=== PATIENT | male | born 1940 | race African-American/Black ===

== ENCOUNTER 2023-09-26 16:57 | Inpatient (IN) | payer MEDICARE, OTHER ==
[2023-09-27] MEDS ORDERED: Acetaminophen 325 MG TAB PO PRN (11:38)
[2023-09-27] MEDS ORDERED: Ondansetron ODT 4 MG TAB PO PRN (11:38)
[2023-09-27] MEDS: Isosorbide Dinitrate 20 MG TAB PO SCH (15:32)
[2023-09-27] MEDS: IPRATROPIUM BROMIDE 0.06% EA NARE SCH (15:42)
[2023-09-27] MEDS: Acetaminophen 325 MG TAB PO PRN (16:40)
[2023-09-27] MEDS: Polyethylene Glycol 3350 17 GM Packet PO SCH (18:46)
[2023-09-27] MEDS: Pantoprazole DR 40 MG TAB PO SCH (20:59)
[2023-09-27] MEDS: Melatonin 3 MG TAB PO SCH (20:59)
[2023-09-27] MEDS: Apixaban 5 MG TAB PO SCH (21:00)
[2023-09-27] MEDS: Losartan 25 MG TAB PO SCH (21:00)
[2023-09-27] MEDS: Gabapentin 300 MG CAP PO SCH (21:00)
[2023-09-27] MEDS: Mometasone/Formoterol 200/5 60 PUFF INH SCH (21:01)
[2023-09-27] MEDS: Acetaminophen 500 MG TAB PO SCH (21:01)
[2023-09-27] MEDS: Diclofenac 1% 100 GM Topical GEL TP SCH (21:07)
[2023-09-28 06:03] LABS: #Basophils 0.1 thou/uL (0.0-0.2); #Eosinphils 0.2 thou/uL (0.0-0.7); #Lymphocytes 1.7 thou/uL (1.20-3.40); #Monocytes 0.6 thou/uL (0.11-0.59); #Neutrophils 2.2 thou/uL (1.40-6.50); %Basophils 1.7 % (0.0-1.0); %Eosinophils 4.2 % (0.0-10.0); %Lymphocytes 35.6 % (21.0-51.0); %Monocytes 12.6 % (0.0-10.0); %Neutrophils 45.8 % (42.0-75.0); Hematocrit 38.2 % (42.0-52.0); Mean Corpuscular HGB CONC 31.4 g/dL (32.0-36.0); Mean Corpuscular Volume 82.8 fl (78.0-98.0); Mean Platelet Volume 7.1 fL (7.4-10.4); Platelet Count 212 10x3/uL (130-400); RBC Distribution Width 13.9 % (11.5-14.5); Red Blood Cell (RBC) Count 4.61 mill/uL (4.70-6.10); White Blood Cell (WBC) Count 4.9 10x3/uL (4.8-10.8)
[2023-09-28 06:21] LABS: ALT (SGPT) 21 U/L (8-55); AST (SGOT) 20 U/L (5-34); Albumin 3.4 g/dL (3.4-4.8); Alkaline Phosphatase 66 U/L (40-110); Anion Gap 13 mmol/L (10-20); BUN (Urea Nitrogen) 32 mg/dL (8.4-25.7); Bilirubin, Total 0.6 mg/dL (0.2-1.2); Calc. Creatinine Clearance 53 mL/min (70-130); Calcium 9.9 mg/dL (7.8-10.44); Carbon Dioxide 25 mmol/L (23-31); Chloride 105 mmol/L (98-107); Estimated GFR 38; Glucose 106 mg/dL (83-110); Potassium 4.5 mmol/L (3.5-5.1); Protein, Total 6.4 g/dL (5.8-8.1); Sodium 138 mmol/L (136-145)
[2023-09-28] MEDS: Furosemide 40 MG TAB PO SCH (08:57)
[2023-09-28] MEDS: Potassium Chloride 20 MEQ TAB PO SCH (08:57)
[2023-09-28] MEDS: Sotalol HCl 80 MG TAB PO SCH (08:57)
[2023-09-28] MEDS: Atorvastatin Calcium 40 MG TAB PO SCH (08:57)
[2023-09-28] MEDS ORDERED: Polyethylene Glycol 3350 17 GM Packet PO SCH (09:00)
[2023-09-28] MEDS: Ipratropium Bromide 0.06% Nasal Inhaler 15ml EA NARE SCH (12:15)
[2023-09-28] MEDS: Apixaban 2.5 MG TAB PO SCH (21:07)
[2023-09-29 05:37] LABS: ALT (SGPT) 23 U/L (8-55); AST (SGOT) 20 U/L (5-34); Albumin 3.6 g/dL (3.4-4.8); Alkaline Phosphatase 63 U/L (40-110); Anion Gap 15 mmol/L (10-20); BUN (Urea Nitrogen) 33 mg/dL (8.4-25.7); Bilirubin, Total 0.6 mg/dL (0.2-1.2); Calc. Creatinine Clearance 44 mL/min (70-130); Carbon Dioxide 25 mmol/L (23-31); Chloride 104 mmol/L (98-107); Estimated GFR 31; Globulin 3.2 g/dL (2.4-3.5); Glucose 111 mg/dL (83-110); Potassium 5.1 mmol/L (3.5-5.1); Protein, Total 6.8 g/dL (5.8-8.1); Sodium 139 mmol/L (136-145)
[2023-09-29] MEDS: Polyethylene Glycol 3350 17 GM Packet PO PRN (09:04)
[2023-09-29 18:07] LABS: Creatinine, Urine 212.71 mg/dL (63-166); Urea Nitrogen, Random Urine Greater than 100 mg/dl
[2023-09-30] MEDS: Ergocalciferol 1.25 MG(50,000 UNITS) CAP PO SCH (08:22)
[2023-09-30] MEDS: Furosemide 20 MG TAB PO SCH (08:23)
[2023-09-30 09:57] LABS: Anion Gap 13 mmol/L (10-20); BUN (Urea Nitrogen) 34 mg/dL (8.4-25.7); Calc. Creatinine Clearance 50 mL/min (70-130); Calcium 10.1 mg/dL (7.8-10.44); Carbon Dioxide 25 mmol/L (23-31); Chloride 104 mmol/L (98-107); Estimated GFR 36; Glucose 111 mg/dL (83-110); Potassium 4.8 mmol/L (3.5-5.1); Sodium 137 mmol/L (136-145)
[2023-10-01 05:56] LABS: Hematocrit 36.5 % (42.0-52.0); Hemoglobin 11.4 g/dL (14.0-18.0); Platelet Count 177 10x3/uL (130-400)
[2023-10-01 06:12] LABS: Anion Gap 13 mmol/L (10-20); BUN (Urea Nitrogen) 32 mg/dL (8.4-25.7); Calc. Creatinine Clearance 57 mL/min (70-130); Calcium 9.6 mg/dL (7.8-10.44); Carbon Dioxide 23 mmol/L (23-31); Chloride 107 mmol/L (98-107); Estimated GFR 42; Glucose 102 mg/dL (83-110); Potassium 4.4 mmol/L (3.5-5.1); Sodium 139 mmol/L (136-145)
[2023-10-01] MEDS: traMADol HCl 50 MG TAB PO PRN (08:02)
[2023-10-02 06:03] LABS: Anion Gap 11 mmol/L (10-20); BUN (Urea Nitrogen) 27 mg/dL (8.4-25.7); Calc. Creatinine Clearance 60 mL/min (70-130); Calcium 9.4 mg/dL (7.8-10.44); Carbon Dioxide 24 mmol/L (23-31); Chloride 107 mmol/L (98-107); Estimated GFR 45; Glucose 105 mg/dL (83-110); Potassium 4.4 mmol/L (3.5-5.1); Sodium 138 mmol/L (136-145)
[2023-10-02] MEDS: Potassium Chloride 10 MEQ TAB PO SCH (08:29)
[2023-10-02] MEDS: NIFEdipine XL 30 MG ER.TAB PO SCH (08:29)
[2023-10-03 06:08] LABS: Anion Gap 11 mmol/L (10-20); BUN (Urea Nitrogen) 22 mg/dL (8.4-25.7); Calc. Creatinine Clearance 74 mL/min (70-130); Calcium 9.5 mg/dL (7.8-10.44); Carbon Dioxide 23 mmol/L (23-31); Chloride 106 mmol/L (98-107); Estimated GFR 57; Glucose 99 mg/dL (83-110); Potassium 4.4 mmol/L (3.5-5.1); Sodium 136 mmol/L (136-145)
[2023-10-03] MEDS: Isosorbide Dinitrate 20 MG TAB PO SCH (08:08)
[2023-10-03] MEDS: NIFEdipine XL 30 MG ER.TAB PO SCH (08:09)
[2023-10-03] MEDS: Apixaban 5 MG TAB PO SCH (08:11)
[2023-10-03] MEDS ORDERED: hydrALAZINE 25 MG TAB PO PRN (16:39)
[2023-10-03] MEDS: hydrALAZINE 25 MG TAB PO PRN (16:49)
[2023-10-06 11:32] LABS: Bilirubin Negative (Negative); Blood, Urine Negative (Negative); Clarity Clear (Clear); Glucose, Urine (Dipstick) Negative (Negative); Ketone, Urine Negative (Negative); Leukocyte Negative (Negative); Nitrite Negative (Negative); Protein, Urine (Dipstick) Negative (Neg-Trace); Specific Gravity, Urine 1.025 (1.005-1.030); Urobilinogen 0.2 mg/dL (Less than 2)
[2023-10-06 11:39] LABS: CAUTI Indications for Culture Dysuria,urgency,freq; Squamous Epithelial 0-3 HPF (0-3); WBC/HPF 0-3 HPF (0-3)
[2023-10-06 11:40] LABS: Urine Culture Reflex No No
[2023-10-07] MEDS: NIFEdipine XL 30 MG ER.TAB PO SCH (09:41)
[2023-10-08 06:02] LABS: #Basophils 0.1 thou/uL (0.0-0.2); #Eosinphils 0.2 thou/uL (0.0-0.7); #Lymphocytes 1.6 thou/uL (1.20-3.40); #Monocytes 0.6 thou/uL (0.11-0.59); #Neutrophils 2.3 thou/uL (1.40-6.50); %Basophils 1.3 % (0.0-1.0); %Eosinophils 4.6 % (0.0-10.0); %Lymphocytes 33.2 % (21.0-51.0); %Monocytes 12.7 % (0.0-10.0); %Neutrophils 48.2 % (42.0-75.0); Hematocrit 34.8 % (42.0-52.0); Hemoglobin 10.8 g/dL (14.0-18.0); Mean Corpuscular HGB CONC 30.9 g/dL (32.0-36.0); Mean Corpuscular Hemoglobin 26.2 pg (27.0-31.0); Mean Corpuscular Volume 84.7 fl (78.0-98.0); Mean Platelet Volume 6.8 fL (7.4-10.4); Platelet Count 166 10x3/uL (130-400); RBC Distribution Width 14.9 % (11.5-14.5); Red Blood Cell (RBC) Count 4.11 mill/uL (4.70-6.10); White Blood Cell (WBC) Count 4.7 10x3/uL (4.8-10.8)
[2023-10-08 06:14] LABS: Anion Gap 14 mmol/L (10-20); BUN (Urea Nitrogen) 17 mg/dL (8.4-25.7); Calc. Creatinine Clearance 85 mL/min (70-130); Calcium 9.2 mg/dL (7.8-10.44); Carbon Dioxide 18 mmol/L (23-31); Chloride 110 mmol/L (98-107); Estimated GFR 68; Glucose 96 mg/dL (83-110); Potassium 4.3 mmol/L (3.5-5.1); Sodium 138 mmol/L (136-145)
[2023-10-08] MEDS ORDERED: Polyethylene Glycol 3350 17 GM Packet PER TUBE SCH (08:15)
[2023-10-08] MEDS: Polyethylene Glycol 3350 17 GM Packet PO SCH (08:22)
[2023-10-10] MEDS: Ferrous Sulfate 325 MG TAB PO SCH (07:32)
[2023-10-10] MEDS: Isosorbide Dinitrate 20 MG TAB PO SCH ×2 (12:53→20:41)
[2023-10-10] MEDS: Albuterol 200 PUFF (6.7GM INHALER) ONE (22:13)
[2023-10-11 05:34] VITALS: BMI 38.2
[2023-10-11 07:44] VITALS: TEMP 97.6
[2023-10-11 10:21] VITALS: BMI 38.2
[2023-10-11 14:34] VITALS: BP 137/77
[2023-10-11] MEDS ORDERED: Fluticasone Propionate Nasal Spray 16 gm Bottle NASAL SCH (21:00)
== END 2023-10-11 13:55 | disposition home or self-care (01) | DRG 948 ==
LOC: NAV ACUTE 09-27 11:12
PROVIDERS: ADMIT Family Medicine; ATTEND Family Medicine
DX: R53.81 Other malaise (principal); I13.0 Hypertensive heart and chronic kidney disease with heart failure and stage 1 through stage 4 chronic kidney disease, or unspecified chronic kidney disease; I50.32 Chronic diastolic (congestive) heart failure; N17.9 Acute kidney failure, unspecified; I49.5 Sick sinus syndrome; N18.9 Chronic kidney disease, unspecified; K21.9 Gastro-esophageal reflux disease without esophagitis; G47.33 Obstructive sleep apnea (adult) (pediatric); I25.10 Atherosclerotic heart disease of native coronary artery without angina pectoris; D64.9 Anemia, unspecified; I48.91 Unspecified atrial fibrillation; M54.16 Radiculopathy, lumbar region; J44.9 Chronic obstructive pulmonary disease, unspecified; K59.00 Constipation, unspecified; Z98.890 Other specified postprocedural states; Z86.73 Personal history of transient ischemic attack (TIA), and cerebral infarction without residual deficits; Z95.0 Presence of cardiac pacemaker; Z90.49 Acquired absence of other specified parts of digestive tract; Z90.89 Acquired absence of other organs; Z82.49 Family history of ischemic heart disease and other diseases of the circulatory system
CPT/HCPCS: 36415; 80048; 80053; 81001; 82570; 82607; 83540; 84540; 85014; 85018; 85025; 85049; 94664; 97602